=== PATIENT | male | born 1940 | race Caucasian/White ===

== ENCOUNTER 2018-10-15 14:36 | Outpatient (CLI) | payer MEDICARE ==
--- NOTE | 2018-10-15 15:31 | ULT ---
ULTRASOUND RENAL BILATERAL STANDARD: HISTORY: Renal cyst. COMPARISON: Ultrasound from 01/27/[address] from 07/31/2016. FINDINGS: The right kidney measures 9.1 x 4.5 x 4.4 cm and the left kidney measures 11 x 5.3 x 5.8 cm. A small 0.7 cm cyst anterior pole of the left kidney is unchanged in size. No solid component. No hydronep hrosis or mass. The left kidney is asymmetrically enlarged relative to the right. The urinary bladder is unremarkabl e. IMPRESSION: Unchanged appearance of the left renal cyst. POS: [facility]
== END 2018-10-15 14:37 | disposition home or self-care (01) ==
LOC: SCSULT 14:36
PROVIDERS: ATTEND Urology
DX: N28.1 Cyst of kidney, acquired (principal); R39.14 Feeling of incomplete bladder emptying
CPT/HCPCS: 76770

== ENCOUNTER 2019-12-15 13:03 | Outpatient (CLI) | payer MEDICARE ==
--- NOTE | 2019-12-15 13:54 | ULT ---
Exam: Bilateral renal ultrasound HISTORY: Feeling of incomplete bladder emptying. Benign prosthetic hyperplasia. Complex renal cysts. COMPARISON: 10/15/2018 FINDINGS: Right kidney: Normal cortical echotexture. Mild renal cortical thinning. No hydronephrosis. Right kidney measurements: 4.9 x 4.4 x 9.5 cm. Left kidney: Normal cortical echotexture. Hypoechoic focus in the left kidney measures 1.7 x 1.5 x 1. 9 cm, previously measuring 1.5 x 1.4 x 1.7 cm. Slight interval growth may be present. No hydronephrosis. Left kidney measurements 6.1 x 6.6 x 11.5 cm. Urinary bladder: Normal bladder mucosa. Prevoid volume is 170 mL. Post void volume was not determined . IMPRESSION: 1. No hydronephrosis 2. Complex left renal lesion which is slightly increasing in size. Correlation made with a CT from 07/31/2016 demonstrates a simple cystic lesion.
== END 2019-12-15 13:04 | disposition home or self-care (01) ==
LOC: SCSULT 13:03
PROVIDERS: ATTEND Urology
DX: N28.1 Cyst of kidney, acquired (principal); N40.1 Benign prostatic hyperplasia with lower urinary tract symptoms; R39.14 Feeling of incomplete bladder emptying
CPT/HCPCS: 76770